=== PATIENT | male | born 1970 | race African-American/Black ===

== ENCOUNTER 2025-09-25 06:00 | Inpatient (IN) | payer MEDICAID ==
[~2025-09-25] VITALS: Ht 172.7 cm; Wt 76.2 kg
[2025-09-25 06:11] VITALS: O2SAT 100
[2025-09-25] MEDS: MORPHINE SULFATE 4 MG/ML INJ (FOR IV/IM USE) IV ONE (06:46)
[2025-09-25] MEDS: ONDANSETRON HCL 4MG/2ML INJ IV ONE (06:46)
[2025-09-25] MEDS: ASPIRIN 325MG TABLET PO ONE (06:47)
[2025-09-25] MEDS: HYDRALAZINE 20MG/ML VIAL IV ONE (06:47)
[2025-09-25 08:43] LABS: CLARITY URINE TURBID (CLEAR); COLOR URINE YELLOW (YELLOW); GLUCOSE URINE 2+ (NEGATIVE); KETONES URINE NEGATIVE (NEGATIVE); PH URINE 8.0 (4.5-8.0); PROTEIN URINE 1+ (NEGATIVE); SPECIFIC GRAVITY URINE 1.022 (1.005-1.030)
[2025-09-25 08:44] LABS: LEUKOCYTE ESTERASE URINE 1+ (NEGATIVE); NITRITE URINE NEGATIVE (NEGATIVE); UROBILINOGEN URINE 1.0 E.U./dL (0.2-1.0)
[2025-09-25 09:00] LABS: OCCULT BLOOD URINE TRACE (NEGATIVE)
[2025-09-25 09:04] LABS: HEMATOCRIT. 34.4 % (42.0-52.0); HEMOGLOBIN. 10.5 g/dL (14.0-18.0); MEAN PLATELET VOLUME 7.9 fl (7.4-10.4); PLATELET 223 x1000/uL (130-400); RED BLOOD CELL COUNT 5.05 mill/uL (4.7-6.1); RED CELL DISTRIBUTION WIDTH 16.2 % (11.6-14.6)
[2025-09-25 09:16] LABS: SQUAMOUS EPITHELIAL CELL URINE RARE /lpf (RARE/1+)
[2025-09-25 09:17] LABS: BACTERIA URINE 4+; RBC URINE 0-2 /hpf (0-2)
[2025-09-25 09:18] LABS: CREATININE 1.3 mg/dL (0.6-1.3); UREA NITROGEN BLOOD 12 mg/dL (9-23)
[2025-09-25 09:19] LABS: TROPONIN I HIGH SENSITIVITY 30 ng/L (3.0-53)
[2025-09-25 09:20] LABS: ASPARTATE AMINOTRANSFERASE 67 IU/L (<34); BILIRUBIN DIRECT 0.1 mg/dL (<=3.0); BILIRUBIN TOTAL 0.4 mg/dL (0.1-1.0); PROTEIN TOTAL 6.8 g/dL (6.0-8.3)
[2025-09-25 09:21] LABS: *AMPHETAMINES SCREEN URINE NEGATIVE (NEGATIVE); *BARBITURATES SCREEN URINE NEGATIVE (NEGATIVE); *BENZODIAZEPINES SCREEN URINE NEGATIVE (NEGATIVE); *COCAINE SCREEN URINE NEGATIVE (NEGATIVE); CANNABINOID URINE SCREEN NEGATIVE (NEGATIVE); ECSTASY MDMA SCREEN URINE NEGATIVE (NEGATIVE); METHADONE URINE SCREEN NEGATIVE (NEGATIVE); OPIATES URINE SCREEN NEGATIVE (NEGATIVE); PHENCYCLIDINE URINE SCREEN NEGATIVE (NEGATIVE)
[2025-09-25] MEDS: CEFTRIAXONE 1GM/50ML 50 ML IV NR (10:01)
[2025-09-25 10:38] LABS: BAND% 1.0 % (1.0-6.0); LYMPHOCYTES % MANUAL 1.0 % (20.0-50.0); MONOCYTES % MANUAL 3.0 % (2.0-8.0); NEUTROPHILS % MANUAL 95.0 % (45.0-75.0); PLATELET ESTIMATE NORMAL
[2025-09-25] MEDS ORDERED: ACETAMINOPHEN 325MG TABLET PO PRN ×2 (11:15)
[2025-09-25] MEDS ORDERED: IPRATROPIUM/ALBUTEROL 0.5-3(2.5)MG/3ML NEB HHN PRN (11:15)
[2025-09-25] MEDS ORDERED: ONDANSETRON HCL 4MG/2ML INJ IV PRN (11:15)
[2025-09-25] MEDS ORDERED: DEXTROSE 50% WATER 50ML SYRINGE IV PRN (11:30)
[2025-09-25] MEDS: PANTOPRAZOLE SODIUM 40 MG/VIAL IV SCH (11:54)
[2025-09-25] MEDS: AMLODIPINE 10MG TABLET PO SCH (11:55)
[2025-09-25] MEDS: ASPIRIN 81MG EC TABLET PO SCH (11:55)
[2025-09-25] MEDS: INSULIN LISPRO 100 UNITS/ML SUBCUT SCH (12:50)
[2025-09-25 13:00] VITALS: BP 194/106; PULSE 87; RESP 20; TEMP 36.1
[2025-09-25] MEDS: LOSARTAN 50 MG TABLET PO SCH (13:35)
[2025-09-25] MEDS: CLONIDINE 0.1MG TABLET PO PRN (13:35)
[2025-09-25] MEDS: TAMSULOSIN HCL 0.4MG SR CAPSULE PO SCH (13:35)
[2025-09-25] MEDS: ENOXAPARIN 40MG/0.4ML SYR SUBCUT SCH (13:38)
[2025-09-25 14:23] VITALS: BP 194/106; PULSE 87; RESP 18; TEMP 36.14
[2025-09-25 16:00] VITALS: BP 150/80; PULSE 89; RESP 20
[2025-09-25] MEDS: DOCUSATE SODIUM 100MG CAPSULE PO SCH (18:46)
[2025-09-25 20:00] VITALS: BP 153/83; PULSE 73; RESP 19; TEMP 36.4
[2025-09-25] MEDS: ATORVASTATIN CALCIUM 40MG TABLET PO SCH (22:30)
[2025-09-26] VITALS: BP 149/95; PULSE 67; RESP 20; TEMP 36.4
[2025-09-26 04:00] VITALS: BP 147/114; PULSE 77; RESP 19; TEMP 36.4
[2025-09-26 07:10] LABS: TROPONIN I HIGH SENSITIVITY 22 ng/L (3.0-53)
[2025-09-26 07:34] LABS: TRIGLYCERIDE 49.0 mg/dL (0-150)
[2025-09-26 07:35] LABS: LDL CHOLESTEROL 70.0 mg/dL (5-100)
[2025-09-26 08:00] VITALS: BP 200/99; PULSE 87; RESP 16; TEMP 36.5
[2025-09-26] MEDS: ASPIRIN 81MG TABLET PO NR (10:01)
[2025-09-26] MEDS: HYDRALAZINE 20MG/ML VIAL IV NR (11:53)
[2025-09-26 12:00] VITALS: BP 181/93; PULSE 68; RESP 17; TEMP 36.3
[2025-09-26 12:28] LABS: CREATININE 1.2 mg/dL (0.6-1.3)
[2025-09-26 12:29] LABS: UREA NITROGEN BLOOD 15 mg/dL (9-23)
[2025-09-26] MEDS: METOCLOPRAMIDE 10MG/10 ML UDC PO SCH (14:57)
[2025-09-26] MEDS: CEFTRIAXONE 1GM/50ML 50 ML IV SCH (14:57)
[2025-09-26 16:00] VITALS: BP 134/86; PULSE 89; RESP 16; TEMP 36.4
[2025-09-26 20:00] VITALS: BP 161/93; PULSE 70; RESP 18; TEMP 36.2; O2SAT 98
[2025-09-26] MEDS: BLOOD SUGAR DIAGNOSTIC STRIP TEST SCH (21:15)
[2025-09-26] MEDS: LOSARTAN 50 MG TABLET PO SCH (22:22)
[2025-09-27] VITALS: BP 141/101; PULSE 71; RESP 17; TEMP 35.9; O2SAT 97
[2025-09-27 04:00] VITALS: BP 154/88; PULSE 65; RESP 17; TEMP 36.1; O2SAT 96
[2025-09-27 06:16] LABS: CREATININE 1.1 mg/dL (0.6-1.3); UREA NITROGEN BLOOD 12 mg/dL (9-23)
[2025-09-27 06:27] LABS: BASOPHILS % 1.2 % (0.0-2.0); EOSINOPHILS % 3.1 % (0.0-5.0); HEMATOCRIT. 38.0 % (42.0-52.0); HEMOGLOBIN. 11.9 g/dL (14.0-18.0); LYMPHOCYTES % 32.9 % (20.0-50.0); MEAN PLATELET VOLUME 8.5 fl (7.4-10.4); MONOCYTES % 9.1 % (2.0-8.0); NEUTROPHILS % 53.7 % (40.0-76.0); PLATELET 243 x1000/uL (130-400); RED BLOOD CELL COUNT 5.59 mill/uL (4.7-6.1); RED CELL DISTRIBUTION WIDTH 16.2 % (11.6-14.6)
[2025-09-27 06:40] LABS: ADD RBC MORPHOLOGY NO
[2025-09-27 08:00] VITALS: BP 173/80; PULSE 75; RESP 16; TEMP 36.3
[2025-09-27] MEDS ORDERED: CARV25TA47 PO ×2 (08:21→14:59)
[2025-09-27] MEDS: CEFTRIAXONE 1GM/50ML 50 ML IV SCH (09:53)
[2025-09-27] MEDS: CARVEDILOL 12.5MG TABLET PO SCH ×2 (10:18→21:30)
[2025-09-27 12:00] VITALS: BP 171/100; PULSE 85; RESP 17; TEMP 36.3; O2SAT 99
[2025-09-27] MEDS ORDERED: CHLO50TA MT (14:59)
[2025-09-27] MEDS ORDERED: TAMS-54 PO (14:59)
[2025-09-27] MEDS ORDERED: AMLO10TA80 PO (14:59)
[2025-09-27] MEDS ORDERED: LIP40 PO (14:59)
[2025-09-27] MEDS ORDERED: FINA5TAB11 MT (14:59)
[2025-09-27] MEDS ORDERED: LOSA100T33 PO (14:59)
[2025-09-27] MEDS ORDERED: ASPI-1497 MT (15:03)
[2025-09-27 16:00] VITALS: BP 163/80; PULSE 75; RESP 19; TEMP 36.5; O2SAT 98
[2025-09-27] MEDS: LOSARTAN 50 MG TABLET PO SCH (16:00)
[2025-09-27] MEDS ORDERED: METF-414 MT (16:28)
[2025-09-27] MEDS: CHLORTHALIDONE 25MG TABLET PO SCH (18:38)
[2025-09-27 20:00] VITALS: BP 139/86; PULSE 70; RESP 21; TEMP 36.1; O2SAT 99
[2025-09-28] VITALS: BP 142/88; PULSE 66; RESP 21; TEMP 36.3; O2SAT 98
[2025-09-28 04:00] VITALS: BP 158/90; PULSE 73; RESP 21; TEMP 36.4; O2SAT 99
[2025-09-28 08:00] VITALS: BP 192/102; PULSE 86; RESP 18; TEMP 36.4; O2SAT 99
[2025-09-28] MEDS: LOSARTAN 100 MG TABLET PO SCH (10:18)
[2025-09-28 12:00] VITALS: BP 168/108; PULSE 74; RESP 17; TEMP 36.3; O2SAT 98
[2025-09-28] MEDS ORDERED: TAMS-54 PO (14:18)
[2025-09-28 16:00] VITALS: BP 166/106; PULSE 81; RESP 18; TEMP 36.2; O2SAT 98
[2025-09-28] MEDS: HYDRALAZINE HCL 50MG TABLET PO SCH (16:52)
[2025-09-28 20:00] VITALS: BP_SYST 127; BP_SYST 179; BP_DIAS 85; BP_DIAS 95; PULSE 69; RESP 18; TEMP 35.9; O2SAT 98
[2025-09-28] MEDS: TAMSULOSIN HCL 0.4MG SR CAPSULE PO SCH (22:24)
[2025-09-28] MEDS: CARVEDILOL 12.5MG TABLET PO SCH (22:25)
[2025-09-29] VITALS: BP 190/111; PULSE 75; RESP 18; TEMP 36.6; O2SAT 99
[2025-09-29 04:00] VITALS: BP 143/90; PULSE 71; RESP 18; TEMP 36.4; O2SAT 99
[2025-09-29 08:00] VITALS: BP 140/72; PULSE 78; RESP 20; TEMP 36; O2SAT 99
[2025-09-29] MEDS: IOHEXOL-350 100 ML BOTTLE ONE (08:00)
[2025-09-29 12:00] VITALS: BP 135/89; PULSE 77; RESP 20; TEMP 36; O2SAT 99
[2025-09-29 16:00] VITALS: BP 145/90; PULSE 76; RESP 20; TEMP 35.7; O2SAT 99
[2025-09-29 20:00] VITALS: BP 134/79; PULSE 106; RESP 13; TEMP 36.6; O2SAT 96
[2025-09-30] VITALS: BP 134/79; PULSE 106; RESP 16; TEMP 36.5; O2SAT 96
[2025-09-30 04:00] VITALS: BP 160/109; PULSE 98; RESP 18; TEMP 36.7; O2SAT 100
[2025-09-30 08:15] VITALS: BP 135/80; PULSE 101; RESP 18; TEMP 36.4; O2SAT 98
[2025-09-30 12:21] VITALS: BP 108/69; PULSE 83; RESP 18; TEMP 36.2; O2SAT 98
[2025-09-30 12:29] VITALS: BP 108/69; PULSE 83; RESP 18; TEMP 97.1
== END 2025-09-30 14:15 | disposition home or self-care (01) | DRG 199 ==
LOC: ER 06:00 → 6WST 11:03 → EDBEDREQTM 11:04 → EDBEDREQ 11:04 → ENRESERV 11:17
PROVIDERS: ADMIT Internal Medicine; ATTEND Internal Medicine
DX: I16.0 Hypertensive urgency (principal); D50.9 Iron deficiency anemia, unspecified; E78.5 Hyperlipidemia, unspecified; E11.9 Type 2 diabetes mellitus without complications; I11.9 Hypertensive heart disease without heart failure; N39.0 Urinary tract infection, site not specified; I20.9 Angina pectoris, unspecified; K21.9 Gastro-esophageal reflux disease without esophagitis; N40.0 Benign prostatic hyperplasia without lower urinary tract symptoms; K59.00 Constipation, unspecified; R74.01 Elevation of levels of liver transaminase levels; Z79.899 Other long term (current) drug therapy; Z86.73 Personal history of transient ischemic attack (TIA), and cerebral infarction without residual deficits; Z91.148 Patient's other noncompliance with medication regimen for other reason
CPT/HCPCS: 36415; 71045; 71275; 74174; 80048; 80061; 80076; 80305; 80320; 81003; 82550; 82962; 83036; 84484; 85025; 93005; 93880; 93970; 96365; 96375; 97162; 99285; A4606; J0360; J0696; J1650; J1815; J2270; J2405; J2470; J8597; Q9967; G0480